=== PATIENT | female | born 1995 | race Caucasian/White ===

== ENCOUNTER 2018-02-13 13:39 | Emergency (ER) | payer OTHER ==
[~2018-02-13] VITALS: Ht 152.4 cm; Wt 73.9 kg
[2018-02-13 13:40] VITALS: Ht 152.4 cm; Wt 73.9 kg
[2018-02-13 14:31] VITALS: BP 113/80
== END 2018-02-13 13:40 | disposition home or self-care (01) ==
LOC: ED 13:39
DX: S39.012A Strain of muscle, fascia and tendon of lower back, initial encounter (principal); M46.1 Sacroiliitis, not elsewhere classified; X50.0XXA Overexertion from strenuous movement or load, initial encounter; Y93.89 Activity, other specified; Y92.89 Other specified places as the place of occurrence of the external cause; Y99.8 Other external cause status
CPT/HCPCS: J1885

== ENCOUNTER 2018-02-15 08:15 | Emergency (ER) | payer OTHER ==
[~2018-02-15] VITALS: Ht 152.4 cm; Wt 74.4 kg
[2018-02-15 08:59] VITALS: BP 114/73
== END 2018-02-15 08:59 | disposition home or self-care (01) ==
LOC: ED 08:15
DX: M54.5 Low back pain (principal)